=== PATIENT | female | born 1980 | race Caucasian/White ===

== ENCOUNTER 2020-08-20 05:38 | Outpatient (CLI) | payer BC ==
[~2020-08-20] VITALS: Ht 170.2 cm; Wt 108.5 kg
[2020-08-20] MEDS ORDERED: DILT300C26 PO (10:56)
[2020-08-20] MEDS ORDERED: FLUO10TA PO (10:56)
[2020-08-20] MEDS ORDERED: MONT10TA32 PO (10:56)
[2020-08-20] MEDS ORDERED: FLUO20TA28 PO (10:56)
== END 2020-08-20 11:06 | disposition home or self-care (01) ==
LOC: PREOP 05:38
PROVIDERS: ATTEND Obstetrics & Gynecology
DX: Z01.818 Encounter for other preprocedural examination (principal); N93.9 Abnormal uterine and vaginal bleeding, unspecified

== ENCOUNTER 2020-08-27 08:27 | Day surgery (SDC) | payer BC ==
[2020-08-27] VITALS (11 sets, daily range): BP systolic 124–145; BP diastolic 78–95
[~2020-08-27] VITALS: Ht 170.2 cm; Wt 108.5 kg
[~2020-08-27 08:27] MED LIST: DILT300C26 PO; FLUO10TA PO; FLUO20TA28 PO; MONT10TA32 PO
[2020-08-27] MEDS ORDERED: LACTATED RINGERS 1,000 ML IV PRN (08:30)
[2020-08-27] MEDS ORDERED: ceFAZolin 2 GM IV Premixed 50 ML IV ONE (08:30)
[2020-08-27] MEDS ORDERED: LIDOCAINE PF 2% 5 ML (XYLOCAINE) VIAL ONE (09:30)
[2020-08-27] MEDS ORDERED: ONDANSETRON 4 MG/2 ML (SDV) Z0FRAN ONE (09:30)
[2020-08-27] MEDS ORDERED: SEVOFLURANE (ULTANE) 15 ML INHAL SOLN ONE (09:30)
[2020-08-27] MEDS ORDERED: proPOfol 200 MG/20 ML (DIPRIVAN) VIAL IV ONE (09:30)
[2020-08-27] MEDS ORDERED: MIDAZOLAM 2 MG/2 ML (VERSED) VIAL ONE (09:30)
[2020-08-27] MEDS ORDERED: fentaNYL INJ 100 MCG/2 ML AMP ONE (09:30)
--- NOTE | 2020-08-27 09:44 | Progress Note-Pre Operative ---
Pre-Operative Progress Note H&P Reviewed The H&P was reviewed, patient examined and no changes noted. Date Seen by Provider: Aug 27, 2020 Time Seen by Provider: 09:40 Date H&P Reviewed: Aug 27, 2020 Time H&P Reviewed: 09:40 Pre-Operative Diagnosis: abnormal uterine bleeding TOSHIA MORALES DO Aug 27, 2020 09:44
[2020-08-27] MEDS ORDERED: KETOROLAC 30 MG/ML VIAL ONE (10:16)
[2020-08-27] MEDS ORDERED: D5 LR IV SOLUTION 1,000 ML IV SCH (10:30)
[2020-08-27] MEDS ORDERED: ONDANSETRON 4 MG/2 ML (SDV) Z0FRAN IVP PRN ×2 (10:30→10:45)
[2020-08-27] MEDS ORDERED: KETOROLAC 30 MG/ML VIAL IVP ONE (10:30)
[2020-08-27] MEDS ORDERED: ACETAMINOPHEN 500 MG TAB (TYLENOL) PO PRN (10:30)
--- NOTE | 2020-08-27 10:31 | Operative Report ---
Operative Report Date of Procedure/Surgery Aug 27, 2020 Surgeon (s) TOSHIA MORALES DO Accounting Analyst (s): NA Post-Operative Diagnosis abnormal uterine bleeding Procedure Performed hysteroscopy, dilation and curettage, Nasima endometrial ablation Description of Procedure Anesthesia Type: General Estimated blood loss (mL): minimal Specimen(s) collected/removed endometrial curettings Description of the Procedure With informed consent, the patient was taken to the operating room where general anesthesia was found to be adequate. She was prepped and draped in the usual sterile fashion in the dorsolithotomy position. The bladder is drained of clear, yellow urine with a straight cath. She started menstruating, so there is blood noted on the perineum and in the vaginal vault. A speculum is placed in the vagina. The tenaculum was used to grasp the anterior lip of the cervix. The cervical os was dilated. I did a hysteroscope (did not need to dilate the cervix). There was proliferative endometrium noted. With some active bleeding. I then did a curettage to sample the endometrium which was sent for pathology. At this time the ablation was started. I sounded the uterus with the Nasima sound to 6.5 cm. I then inserted the device and the appropriate tests were begun. There was obvious gas leakage around the cervical opening, so I used another grasper on each side of the cervix and wrapped it with gauze to create a seal. Once the compliance test was completed and passed, the ablation started in standard fashion for 120 seconds. At this point the instruments were removed and a follow up hysteroscope was done, revealing appropriately ablated endometrium. The patient was now awakened and taken to recovery in stable condition. Sponge, lap counts were correct times two. Findings of the Procedure proliferative endometrial tissue is noted Allergies and Home Medications Allergies Coded Allergies: No Known Drug Allergies (Unverified , 08/20/20) Home Medications Diltiazem HCl 300 Mg Cap.er.24h, 300 MG PO DAILY, (Reported) Fluoxetine HCl 10 Mg Tablet, 10 MG PO DAILY, (Reported) Fluoxetine HCl 20 Mg Tablet, 20 MG PO DAILY, (Reported) Montelukast Sodium 10 Mg Tablet, 10 MG PO DAILY, (Reported) Patient Home Medication List Home Medication List Reviewed: Yes TOSHIA MORALES DO Aug 27, 2020 10:31
[2020-08-27] MEDS ORDERED: IBUP-844 PO (10:42)
[2020-08-27] MEDS ORDERED: OXC5T PO (10:42)
[2020-08-27] MEDS ORDERED: ACET-93 PO (10:42)
--- NOTE | 2020-08-27 10:43 | Discharge Inst-Women's Service ---
Discharge Inst-Women's Serv Depart Medication/Instructions New, Converted or Re-Newed RX: RX on Chart Instructions expect spotting or light bleeding for 7-10 days expect to have increase in discharge in 10-14 days Final Diagnosis abnormal uterine bleeding Problems Reviewed?: Yes Consults/Follow Up Additional Follow Up: Yes ([address] Gutiérrez) Activity Activity: Activity as Tolerated Driving Instructions: No Driving for 24 Hours NO SMOKING: NO SMOKING Nothing Inside Vagina: No Douching, No [place], No Tampons Diet Discharge Diet: No Restrictions Symptoms to Report to : Bleeding Excessive, Pain Increased, Fever Over 101 Degrees F, Vaginal Bleeding Increase, Cramps in Feet or Legs, Vaginal Discharge Foul For Any Problems or Questions: Contact Your Physician Skin/Wound Care Bathing Instructions: TOSHIA Ma DO Aug 27, 2020 10:43
[2020-08-27] MEDS ORDERED: morphine INJ 10 MG/ML 1ML (SYR OR VIAL) IVP ONE (10:45)
[2020-08-27] MEDS ORDERED: IBUPROFEN 600 MG (MOTRIN) TAB PO SCH (12:00)
--- NOTE | 2020-08-27 14:21 | Anesthesia-General Post-Op ---
General Patient Condition Mental Status/LOC: Same as Preop Cardiovascular: Satisfactory Nausea/Vomiting: Absent Respiratory: Satisfactory Pain: Controlled Complications: Absent Post Op Complications Complications None Follow Up Care/Instructions Patient Instructions None needed. Anesthesia/Patient Condition Patient Condition Patient was seen after the procedure and she was doing well, no complaints, stable vital signs, no apparent adverse anesthesia problems. DEAN TATE DO Aug 27, 2020 14:21
== END 2020-08-27 12:35 | disposition home or self-care (01) ==
LOC: SDC 08:27
PROVIDERS: ATTEND Obstetrics & Gynecology
DX: N93.8 Other specified abnormal uterine and vaginal bleeding (principal); I10 Essential (primary) hypertension; G47.33 Obstructive sleep apnea (adult) (pediatric); Z86.73 Personal history of transient ischemic attack (TIA), and cerebral infarction without residual deficits; Z79.899 Other long term (current) drug therapy
CPT/HCPCS: 84703; 87081; 88305

== ENCOUNTER 2022-12-25 15:06 | Outpatient (RCR) | payer BC ==
[~2022-12-25 15:06] MED LIST changes: +ACET-93 PO; -FLUO10TA PO; +FLUO10TA28 PO; +IBUP-844 PO; +MONT-40 PO; -MONT10TA32 PO; +OXC5T PO
== END 2022-12-26 | disposition home or self-care (01) ==
LOC: ONC 15:06
PROVIDERS: ATTEND Radiology Radiation Oncology
DX: Z51.0 Encounter for antineoplastic radiation therapy (principal); C50.112 Malignant neoplasm of central portion of left female breast; Z17.0 Estrogen receptor positive status [ER+]; G47.33 Obstructive sleep apnea (adult) (pediatric)
CPT/HCPCS: 77290; 77295; 77300; 77334; 77417; 99205

== ENCOUNTER 2023-01-15 15:13 | Outpatient (RCR) | payer BC | END 2023-01-26 | disposition home or self-care (01) | LOC: ONC 15:13 | PROVIDERS: ATTEND Radiology Radiation Oncology | DX: Z51.0 Encounter for antineoplastic radiation therapy (principal); Z48.89 Encounter for other specified surgical aftercare; N84.0 Polyp of corpus uteri | CPT/HCPCS: 77307; 77334; 77336; 77417 ==

== ENCOUNTER 2023-02-16 10:13 | Outpatient (RCR) | payer BC | END 2023-02-25 | disposition home or self-care (01) | LOC: ONC 10:13 | PROVIDERS: ATTEND Radiology Radiation Oncology | DX: C50.112 Malignant neoplasm of central portion of left female breast (principal); F41.9 Anxiety disorder, unspecified; R73.03 Prediabetes; E66.9 Obesity, unspecified; Z17.0 Estrogen receptor positive status [ER+] | CPT/HCPCS: 99213 ==